=== PATIENT | female | born 1995 | race Asian ===

== ENCOUNTER 2017-05-03 20:27 | Emergency (ER) | payer OTHER ==
[~2017-05-03] VITALS: Ht 162.6 cm; Wt 52.0 kg
[2017-05-03 20:35] VITALS: BP 115/78; PULSE 79; TEMP 36.7; O2SAT 100; Ht 162.6 cm; Wt 52.0 kg
--- NOTE | 2017-05-03 21:45 | DIAGNOSTIC IMAGING REPORT ---
CT OF THE HEAD WITHOUT CONTRAST CLINICAL HISTORY: 3 ft fall onto head; head injury symptoms. COMPARISON STUDY: No previous studies for comparison. CT DOSE: 537.48 mGy.cm TECHNIQUE: Helical axial images of the head were obtained without IV contrast. Automated exposure control was utilized for the study. A dose lowering technique was utilized adhering to the principles of ALARA. FINDINGS: No acute intracranial hemorrhage, midline shift or mass effect is present. Ventricular system is normal. Basilar cisterns are patent. There are no extra-axial collections. Chavez-white differentiation is maintained. There is no calvarial fracture. Visualized portions of the sinuses and mastoid air cells are clear. IMPRESSION: 1. No acute intracranial findings. 2. No calvarial fracture. Electronically signed by: Miquel Hannon M.D. 05/03/2017 9:44 PM Dictated Date/Time: 05/03/2017 9:42 PM
--- NOTE | 2017-05-05 00:29 | EMERGENCY ROOM VISIT NOTE ---
ED Visit Note First contact with patient: 20:46 Chief Complaint: I fell off a stage and struck my head. History of Present Illness: Ms. Marie is a 21-year-old [place] female who ambulates into the ED accompanied by female friend complaining of a possible head injury. Patient reports approximately 2 hours ago she was performing on a stage. The stage was a proximally 3 feet in the air. She fell off the stage and reported she struck her head and her right buttocks on the ground. She reports before the fall there was no lightheadedness or dizziness. At the time of the fall there was no loss of consciousness. Over the last 2 hours she reports she has developed an occipital headache in the area for fall. She describes this as a pressure and throbbing discomfort. She rates her discomfort 6/10. The pain is nonradiating. She has not identified any aggravating or alleviating factors related to the pain. She has not taken any medications for pain prior to arrival at the hospital. Associated with her pain she reports she is having dizziness, fatigue, feeling sleepy and she has been having mild nausea without vomiting. Additionally she reports she is having left gluteal pain in the area where she struck her buttocks on the ground. She does not describe or rate this discomfort. It worsens with palpation and sitting down. She has not taken any medications for this pain prior to arrival at the hospital. She denies any associated visual changes, hearing changes, difficulty speaking, difficult swallowing, difficulty ambulates/coronary body movements, neck pain, back pain, chest pain, shortness of breath, abdominal pain, extremity weakness/ numbness/tingling Review of Systems: As noted above in history of present illness. At least body systems were reviewed and found to be negative as noted above. Past Medical History: Patient denies. Current Medications: Patient denies. Allergies to Medications: Patient denies. Social History: Patient is currently University student; she feels safe in her home environment; she admits to tobacco use and denies alcohol use. Physical Examination: Vital Signs: Date Time Temp Pulse Resp B/P (MAP) Pulse Ox O2 Delivery O2 Flow Rate FiO2 05/03/17 20:35 36.7 79 18 115/78 100 Room Air GENERAL: 21-year-old female in mild distress due to pain, nontoxic-appearing, afebrile and hemodynamically stable. NEUROLOGICAL: Awake, alert and oriented to person, place and time. Answering questions appropriately and following commands. Normal gait. Good hand eye coordination. No focal motor or sensory deficits. Romberg test negative. Pronator drift test negative. Normal rapid alternating movements of the hands and fingers. Normal heel vanegas test. Good short-term and long-term recall. Cranial nerves II through XII grossly intact. Thierry Coma Scale 15. SKIN: Warm, dry and pink. Right Gluteal: Over the mid superior aspect of the gluteal muscle patient has a 3-4 cm round contusion. HEENT: Atraumatic and normocephalic. Skull: No bony deformity or crepitus. Mild tenderness over the right occipital area. No raccoon's eyes or arnold signs. No drainage in the ears of the nostril; no hemotympanum. Face: No bony tenderness, swelling, deformity, crepitus or ecchymosis. PERRLA. EOMI without nystagmus. Sclera white and conjunctiva pink. No malocclusion. No intraoral trauma. Airway patent. Speech normal. Trachea midline. No jugular venous distention. BACK: No tenderness over the bony cervical and thoracic spine. Full range of motion of the cervical spine. No CVA tenderness. THORAX: Lungs sounds are clear to auscultation and equal bilaterally with symmetrical chest wall. No crepitus, tenderness, subcutaneous air or deformities noted. ABDOMEN: Flat, soft and nontender. Positive bowel sounds in all quadrants. No guarding, rigidity or organomegaly. EXTREMITIES: Moves all extremities well on command and with purpose. All distal neurovascular statuses are intact and equal bilaterally. 5/5 muscle strength in all movements of the shoulders, elbows, forearms, wrists, hands, hips, knees, ankles and feet. ED Course: Patient is assessed as noted above. Patient's medication list was reviewed. Patient was offered pain medications and refused. Head CT: Was reviewed by myself and read by the radiologist showing no acute intracranial findings or skull fractures. Patient was educated about today's findings and instructed on her treatment plan ; she verbalized understanding and agreement with this plan. Clinical Impression: Closed head injury. Gluteal contusion. Disposition: Patient discharged home in stable condition accompanied by female friends; prior to departure she was reassessed and subjectively reported she was feeling slightly better. Plan: A she was encouraged to use ibuprofen or acetaminophen as needed for pain. Patient was encouraged use ice on areas of pain. Patient was encouraged to form only light activities over the next 48 hours no strenuous activities. Patient was educated on signs of head injury. Patient was encouraged to follow-up at the local concussion clinic for definitive care and treatment. Patient was encouraged to avoid alcohol for the next 48 hours. Patient was encouraged return ED for worsening head injury symptoms or any new/ concerning symptoms.
== END 2017-05-03 22:17 | disposition home or self-care (01) ==
LOC: C.EDB 20:29 → C.EDD 22:17
DX: S09.90XA Unspecified injury of head, initial encounter (principal); S30.0XXA Contusion of lower back and pelvis, initial encounter; W17.89XA Other fall from one level to another, initial encounter; F17.200 Nicotine dependence, unspecified, uncomplicated